=== PATIENT | female | born 1990 | race Caucasian/White ===

== ENCOUNTER 2016-11-25 12:43 | Emergency (ER) | payer MEDICAID ==
--- NOTE | 2016-11-25 12:56 | ER Document Report ---
HPI - HPI Patient complains to provider of: Cut lateral left ankle Onset: Just prior to arrival Onset/Duration: Sudden Pain Level: 4 Context: 26-year-old female whose tetanus is not current cut lateral left ankle with broken toilet lid prior to arrival. Associated Symptoms: None Exacerbated by: Walking Relieved by: Denies - ROS ROS below otherwise negative: Yes Systems Reviewed and Negative: Yes All other systems reviewed and negative - REPRODUCTIVE Reproductive: DENIES: : - DERM Skin Color: Normal Past Medical History - General Information source: Patient - Social History Smoking Status: Current Every Day Smoker Frequency of alcohol use: None Drug Abuse: None Lives with: Spouse/Significant other Family History: Arthritis, DM, Hypertension Pulmonary Medical History: Reports: Hx Asthma Renal/ Medical History: Denies: Hx Peritoneal Dialysis Surgical Hx: Negative - Immunizations Hx Diphtheria, Pertussis, Tetanus Vaccination: No - 2008 Vertical Provider Document - CONSTITUTIONAL Agree With Documented VS: Yes Exam Limitations: No Limitations General Appearance: No Apparent Distress - INFECTION CONTROL TRAVEL OUTSIDE OF THE [place] IN LAST 30 DAYS: No - HEENT HEENT: Normocephalic - NECK Neck: Supple - RESPIRATORY O2 Sat by Pulse Oximetry: 98 - MUSCULOSKELETAL/EXTREMETIES Musculoskeletal/Extremeties: MAEW, FROM, Tender - 2 cm lateral left soft tissue ankle cut - NEURO Level of Consciousness: Awake, Alert, Appropriate Motor/Sensory: No Motor Deficit, No Sensory Deficit - DERM Integumentary: Laceration - see above Course - Vital Signs Vital signs: Temp Pulse Resp BP Pulse Ox 97.8 F 94 16 105/82 98 11/25/16 12:52 11/25/16 12:52 11/25/16 12:52 11/25/16 12:52 11/25/16 12:52 Procedures - Laceration/Wound Repair Left Ankle Time completed: 14:06 Wound length (cm): 2 Wound's Depth, Shape: Linear, Other - into subq tissue Laceration pre-procedure: Sterile drapes applied, Other - ultradex sponge Anesthetic type: 1% Lidocaine Volume Anesthetic (mLs): 5 Wound explored: Clean Irrigated w/ Saline (mLs): 60 Wound Repaired With: Sutures Suture Size/Type: 3:0, Nylon Layer Closure?: No Post-procedure wound care: Sterile dressing applied - bacitracin, telfa Post-procedure NV exam normal: Yes Discharge - Discharge Clinical Impression: Left ankle laceration repair Condition: Good Disposition: HOME, SELF-CARE Instructions: Foot Laceration ([facility]), Acetaminophen Additional Instructions: Keep clean and dry Bacitracin Keep the original dressing on for 2 days sutures out in 12 days Please complete the patient satisfaction survey if you get one, and return it.. If you do not receive a survey, then you can go to the [facility] website, [email or web address] and place your comments about your very good care. Thank you very much. It was a pleasure being your medical provider today. Forms: Return to Work
[2016-11-25] MEDS ORDERED: DIPH/PERTUSS(ACELL)/TETANUS VAC/PF 0.5 ML SYR (>=10YO) IM ONE (13:14)
[2016-11-25] MEDS ORDERED: LIDOCAINE 1% INJ-PF (10 MG/ML) 30 ML SDV INJ ONE (13:14)
[2016-11-25 14:16] VITALS: BP 110/80
== END 2016-11-25 14:20 | disposition home or self-care (01) ==
LOC: ER 12:43
PROC: 0HQNXZZ Repair Left Foot Skin, External Approach (ICD-10-PCS; principal; 2016-11-25)
DX: S91.012A Laceration without foreign body, left ankle, initial encounter (principal); F17.200 Nicotine dependence, unspecified, uncomplicated; X58.XXXA Exposure to other specified factors, initial encounter
CPT/HCPCS: 99283; 90471; 90715; 12001; J3490

== ENCOUNTER 2017-04-02 12:19 | Emergency (ER) | payer MEDICAID ==
[2017-04-02 13:31] LABS: APPEARANCE,URINE CLEAR; BILIRUBIN,URINE NEGATIVE (NEGATIVE); GLUCOSE, URINE NEGATIVE (NEGATIVE); KETONES,URINE NEGATIVE (NEGATIVE); LEUKOCYTE ESTERASE,URINE NEGATIVE (NEGATIVE); NITRITE,URINE NEGATIVE (NEGATIVE); PROTEIN,URINE NEGATIVE (NEGATIVE); URINE SPECIFIC GRAVITY 1.003; UROBILINOGEN,URINE NEGATIVE mg/dL (<2.0)
[2017-04-02] MEDS ORDERED: METHYLPREDNISOLONE INJ 125 MG/2 ML SDV IV ONE (13:50)
[2017-04-02] MEDS ORDERED: IPRATROPIUM/ALBUTEROL 0.5-2.5 MG/3 ML AMPUL NEB ONE (13:50)
[2017-04-02] MEDS: ALBUTEROL SULFATE 0.083% NEB 2.5 MG/3 ML AMPUL NEB SCH ×2 (14:05→15:36)
[2017-04-02] MEDS ORDERED: IBUPROFEN 800 MG TABLET PO ONE (15:29)
[2017-04-02] MEDS ORDERED: LORATADINE 10 MG TABLET PO ONE (15:29)
[2017-04-02] MEDS ORDERED: GUAIFENESIN 600 MG TABLET.SA PO ONE (15:29)
[2017-04-02] MEDS ORDERED: PSEUDOEPHEDRINE HCL 30 MG TABLET PO ONE (15:29)
--- NOTE | 2017-04-02 15:32 | ER Document Report ---
ED Respiratory Problem - General Chief Complaint: Chest Congestion Stated Complaint: CONGESTION/ NAUSEA Time Seen by Provider: 04/02/17 13:40 Mode of Arrival: Ambulatory Information source: Patient Notes: 27-year-old female presents to ED for complaint of sinus congestion chest congestion nausea and sore throat 5 days states she took a test at home and it came back undetermined. She states she has a nebulizer but does not have albuterol for it. She states she is on Advair last menstrual period was February 25. She was very tight and wheezing when first assessed. TRAVEL OUTSIDE OF THE [place] IN LAST 30 DAYS: No - HPI Patient complains to provider of: Asthma, Cough, Other - Congestion Onset: Last week Duration: Continuous Initiating Event: URI, Other - History of asthma Quality of pain: Achy Severity: Moderate Pain Level: 3 Context: Smoker Short of Breath: Mild Cough: Nonproductive Sputum amount: None At home treatment: Bronchodilators, Inhaled steroids Associated symptoms: Congestion, Cough, PND, Runny nose, Sinus pain/pressure, Short of breath, Sore Throat Similar symptoms previously: Yes Recently seen / treated by doctor: No - Related Data Allergies/Adverse Reactions: No Known Allergies Allergy (Verified 04/02/17 12:23) Past Medical History - General Information source: Patient - Social History Smoking Status: Current Every Day Smoker Cigarette use (# per day): Yes - One half pack per day Chew tobacco use (# tins/day): No Smoking Education Provided: Yes - Less than 1 minute Frequency of alcohol use: Occasional - 1-2 times a month Drug Abuse: None Lives with: Family Family History: Arthritis, CAD, COPD, DM, Hyperlipidemia, Hypertension. denies : Malignancy, Thyroid Disfunction Patient has suicidal ideation: No Patient has homicidal ideation: No - Past Medical History Cardiac Medical History: Reports: None Pulmonary Medical History: Reports: Hx Asthma EENT Medical History: Reports: None Neurological Medical History: Reports: None Endocrine Medical History: Reports: None Renal/ Medical History: Reports: None Malignancy Medical History: Reports: None GI Medical History: Reports: None Musculoskeltal Medical History: Reports Hx Musculoskeletal Trauma Skin Medical History: Reports None Psychiatric Medical History: Reports: None Traumatic Medical History: Reports: Hx Fractures - Wrist Infectious Medical History: Reports: None Past Surgical History: Reports: Hx Dilation and Curettage - - Immunizations Immunizations up to date: Yes Hx Diphtheria, Pertussis, Tetanus Vaccination: No - 2008 Review of Systems - Review of Systems Constitutional: Fever, Recent illness EENT: Nose discharge, Sinus discharge, Throat pain, Other - Nausea Cardiovascular: No symptoms reported Respiratory: Cough, Short of breath, Wheezing Gastrointestinal: Nausea Genitourinary: No symptoms reported Female Genitourinary: No symptoms reported Musculoskeletal: No symptoms reported Skin: No symptoms reported Hematologic/Lymphatic: No symptoms reported Neurological/Psychological: No symptoms reported -: Yes All other systems reviewed and negative Physical Exam - Vital signs Vitals: Temp Pulse Resp BP Pulse Ox 97.7 F 87 18 126/80 H 98 04/02/17 12:23 04/02/17 12:23 04/02/17 12:23 04/02/17 12:23 04/02/17 12:23 Interpretation: Normal - General General appearance: Appears well, Alert - HEENT Head: Normocephalic, Atraumatic Eyes: Normal Pupils: PERRL Ears: Normal External canal: Normal Tympanic membrane: Normal Sinus: Normal Nasal: Purulent discharge, Swelling Mouth/Lips: Normal Mucous membranes: Normal Pharynx: Post nasal drainage Neck: Normal - Respiratory Respiratory status: No respiratory distress Chest status: Nontender Breath sounds: Nonproductive cough, Wheezing Chest palpation: Normal - Cardiovascular Rhythm: Regular Heart sounds: Normal auscultation Murmur: No - Abdominal Inspection: Normal Distension: No distension Bowel sounds: Normal Tenderness: Nontender Organomegaly: No organomegaly - Back Back: Normal, Nontender - Extremities General upper extremity: Normal inspection, Nontender, Normal color, Normal ROM , Normal temperature General lower extremity: Normal inspection, Nontender, Normal color, Normal ROM , Normal temperature, Normal weight bearing. No: Farheen's sign - Neurological Neuro grossly intact: Yes Cognition: Normal Orientation: AAOx4 Chinle Coma Scale Eye Opening: Spontaneous Jonh Coma Scale Verbal: Oriented Chinle Coma Scale Motor: Obeys Commands Chinle Coma Scale Total: 15 Speech: Normal Motor strength normal: LUE, RUE, LLE, RLE Sensory: Normal - Psychological Associated symptoms: Normal affect, Normal mood - Skin Skin Temperature: Warm Skin Moisture: Dry Skin Color: Normal Course - Re-evaluation Re-evalutation: 04/02/17 19:13 After Solu-Medrol and nebulizer treatments patient was feeling much better. She was treated with Claritin and Sudafed Mucinex and ibuprofen after her [place] came back negative. Patient was discharged home with prescription for albuterol for her nebulizer and prednisone and told to not use her Advil to she was finished with the prednisone. Patient to follow-up with her primary doctor within the next 3-5 days or to return to the ED for any increase in symptoms. Respirations regular and unlabored before discharge. - Vital Signs Vital signs: Temp Pulse Resp BP Pulse Ox 98.0 F 95 20 113/72 96 04/02/17 15:53 04/02/17 15:53 04/02/17 15:53 04/02/17 15:53 04/02/17 15:53 - Laboratory Laboratory results interpreted by me: 04/02/17 13:08 Urine Blood SMALL H Discharge - Discharge Clinical Impression: Bronchospasm, acute URI (upper respiratory infection) Qualifiers: URI type: unspecified URI Qualified Code(s): J06.9 - Acute upper respiratory infection, unspecified Condition: Stable Disposition: HOME, SELF-CARE Instructions: Family Physicians / Practices Additional Instructions: UPPER RESPIRATORY ILLNESS: You have a viral infection of the respiratory passages -- a "cold." This common infection causes nasal congestion, drainage, and often sore throat and cough. It is highly contagious. The disease usually lasts about 10 to 14 days. There is no "cure" for the viral infection -- it must run its course. If there is a complication, such as bacterial infection in the nose, sinuses, middle ear, or bronchial tubes, antibiotics may be required. The antibiotics won't affect the virus. Drink plenty of fluids. A humidifier may help. An expectorant medication or decongestant may make you more comfortable. Use acetaminophen or ibuprofen for fever or aches. See the doctor if fever persists over two days, if there is any significant worsening of your symptoms, or if you simply fail to improve as expected. BRONCHOSPASM: You have tightness in the bronchial tubes, called bronchospasm. This often occurs with bronchial infections. Allergies, inhaled chemicals, and polluted or cold air can also provoke bronchospasm. It's more likely in patients with asthma in the family. Emergency treatment of bronchospasm may include adrenaline shots or bronchodilator aerosol. You may feel lightheaded and have a rapid pulse for an hour or two. Rest and get plenty of fluids. At home, we'll treat you with a bronchodilator inhaler. Antibiotics and corticosteroids may be required for some patients. Until you recover, avoid chemical fumes, dusts, pollens, and exercising in very cold or dry air. If you smoke, stop now!! If you develop a fever, increased wheezing, chest pain, or severe shortness of breath, you should contact the doctor immediately. INHALED BRONCHODILATORS: You have received a treatment of and/or prescription for an inhaled bronchodilator -- a medication which stimulates the airways in the lung to dilate. This improves the flow of air in asthma, bronchitis, and emphysema. These medicines have some similarity to adrenaline, and can cause similar side effects: shakiness, racing heart, and a sense of nervousness. These side effects decrease with time. Contact your doctor if these side effects are severe. Do not over-use the medicine. Too-frequent use of the inhaler may make it ineffective. Call your doctor if the inhaler is not controlling your symptoms at the prescribed doses. STEROID MEDICATION: You have been given an injection of or oral medicine of the cortisone/ steroid class. This medication is used to control inflammation or allergy. Sanket t is usually only given for a short period of time, until the acute process subsides. There are usually no side effects from short-term use of cortisone-like medications. Some persons feel an increased sense of well-being and are not sleepy at bedtime. Long-term use of cortisone medications is best avoided, unless required for a severe condition. If your condition does not remit, or relapses after the course of corticosteroid medication, you should consult your physician. USE OF ACETAMINOPHEN (Tylenol): Acetaminophen may be taken for pain relief or fever control. It's much safer than aspirin, offering a wider range of "safe" dosages. It is safe during . Some brand names are Tylenol, Panadol, Datril, Anacin 3, Tempra, and Liquiprin. Acetaminophen can be repeated every four hours. The following are maximum recommended dosages: >89 pounds or adults 650 mg to 900 mg Acetaminophen can be repeated every four hours. Maximum dose not to exceed 4000 mg a day. SMOKING: If you smoke, you should stop smoking. The tar and chemicals in cigarette smoke are harmful. Smoking has been shown to cause: emphysema chronic bronchitis lung cancer mouth and throat cancer stomach and pancreas cancer premature aging defects In addition, smoking increases ear and lung infections in children of smokers. FOLLOW-UP CARE: If you have been referred to a physician for follow-up care, call the physician s office for an appointment as you were instructed or within the next two days. If you experience worsening or a significant change in your symptoms, notify the physician immediately or return to the Emergency Department at any time for re-evaluation. Prescriptions: Albuterol Sulfate [Albuterol Sulfate 2.5mg/3 mL] 1 vial IH Q4 PRN #25 vial PRN Reason: Prednisone [Deltasone 10 mg Tablet] 10 mg PO ASDIR PRN #21 tablet PRN Reason: Forms: Elevated Blood Pressure, Return to School
[2017-04-02 16:11] VITALS: BP 113/72
== END 2017-04-02 15:53 | disposition home or self-care (01) ==
LOC: ER 12:19
DX: J98.01 Acute bronchospasm (principal); J06.9 Acute upper respiratory infection, unspecified; J02.9 Acute pharyngitis, unspecified; R09.89 Other specified symptoms and signs involving the circulatory and respiratory systems; R09.81 Nasal congestion; R11.0 Nausea; F17.210 Nicotine dependence, cigarettes, uncomplicated
CPT/HCPCS: 94640; 99283; 96374; 36415; 84703; 81025; 81001; J3490 ×3; J2930; J7620